=== PATIENT | male | born 1955 | race Hispanic/Latino ===

== ENCOUNTER 2025-05-10 21:46 | Emergency (ER) | payer SELFPAY, MEDICARE ==
[~2025-05-10] VITALS: Ht 157.5 cm; Wt 68.2 kg
[2025-05-11 00:39] LABS: KETONE, URINE AUTO RFX 1+ mg/dL (NEGATIVE); LEUKOCYTE ESTERASE UR AUTO RFX NEGATIVE (NEGATIVE); NITRITE, URINE AUTO RFX NEGATIVE (NEGATIVE); RBC, URINE AUTO RFX 0 /HPF (0-3); SQUAM EPITHELIAL CELL UR AURFX 0 /HPF (0-6); WBC, URINE AUTO RFX 1 /HPF (0-3)
[2025-05-11 01:22] LABS: Trichomonas vaginalis (AMP) NOT DETECTED (NEGATIVE)
[2025-05-11 01:46] LABS: GC DNA AMPLIFICATION NEGATIVE (NEGATIVE)
[2025-05-11 03:39] LABS: BASO # 0.0 10^3/uL (0.0-0.2); BASO % 0.3 % (0.0-1.0); EOS # 0.1 10^3/uL (0.0-0.5); EOS % 1.4 % (0.0-3.0); LYMPH # 3.0 10^3/uL (1.5-5.0); LYMPH % 31.0 % (24.0-44.0); MONO # 0.6 10^3/uL (0.0-0.8); MONO % 6.3 % (2.0-8.0); NEUTROPHILS # 5.8 10^3/uL (1.5-8.5); NEUTROPHILS % 60.7 % (36.0-66.0); PLATELET COUNT, AUTOMATED 194 10^3/uL (150-450)
[2025-05-11 03:56] LABS: CALCIUM LEVEL 8.5 MG/DL (8.3-10.6); CARBON DIOXIDE LEVEL 29 MMOL/L (20-31); CHLORIDE LEVEL 99 MMOL/L (98-107); CREATININE FOR GFR 0.78 MG/DL (0.70-1.30); GLOMERULAR FILTRATION RATE > 90.0 (>49); POTASSIUM SERUM 4.0 MMOL/L (3.5-5.1); SODIUM LEVEL 137 MMOL/L (136-145)
[2025-05-11 04:31] VITALS: BP 118/76; TEMP 98.6; O2SAT 98
== END 2025-05-11 05:06 | disposition home or self-care (01) ==
LOC: M ED 21:46
DX: K40.20 Bilateral inguinal hernia, without obstruction or gangrene, not specified as recurrent (principal); I10 Essential (primary) hypertension; E11.9 Type 2 diabetes mellitus without complications; J44.9 Chronic obstructive pulmonary disease, unspecified; Z88.8 Allergy status to other drugs, medicaments and biological substances; Z79.899 Other long term (current) drug therapy; Z79.4 Long term (current) use of insulin; Z79.01 Long term (current) use of anticoagulants; Z79.891 Long term (current) use of opiate analgesic

== ENCOUNTER 2025-05-12 20:50 | Inpatient (IN) | payer MEDICARE, OTHER, SELFPAY ==
[~2025-05-12] VITALS: Ht 157.5 cm; Wt 60.4 kg
[2025-05-12] MEDS: ONDANSETRON 4MG 2ML VIAL IV ONE (22:44)
[2025-05-12] MEDS: NS (Normal Saline) 0.9% 1,000 ML IV ONE (22:44)
[2025-05-12] MEDS: KETOROLAC 30 MG/ML 1 ML VIAL IV ONE (22:45)
[2025-05-12] MEDS ORDERED: ISOVUE-370 76% 100 ML VIAL As Ordered ONE (22:56)
[2025-05-12 22:57] LABS: BASO # 0.0 10^3/uL (0.0-0.2); BASO % 0.2 % (0.0-1.0); EOS # 0.0 10^3/uL (0.0-0.5); EOS % 0.3 % (0.0-3.0); LYMPH # 0.7 10^3/uL (1.5-5.0); LYMPH % 7.3 % (24.0-44.0); MONO # 0.4 10^3/uL (0.0-0.8); MONO % 3.6 % (2.0-8.0); NEUTROPHILS # 8.9 10^3/uL (1.5-8.5); NEUTROPHILS % 88.3 % (36.0-66.0); PLATELET COUNT, AUTOMATED 171 10^3/uL (150-450)
[2025-05-12 23:21] LABS: CK-MB VALUE MASS < 1.0 NG/ML (<3.6)
[2025-05-12 23:23] LABS: CPK CREATINE PHOSPHOKINASE 25 U/L (46-171)
[2025-05-12 23:39] LABS: ALT/SGPT 79 U/L (7.0-40); AST/SGOT 54 U/L (<34); CALCIUM LEVEL 8.1 MG/DL (8.3-10.6); CARBON DIOXIDE LEVEL 26 MMOL/L (20-31); CHLORIDE LEVEL 96 MMOL/L (98-107); CREATININE FOR GFR 0.75 MG/DL (0.70-1.30); GLOMERULAR FILTRATION RATE > 90.0 (>49); POTASSIUM SERUM 4.4 MMOL/L (3.5-5.1); SODIUM LEVEL 133 MMOL/L (136-145)
[2025-05-13] MEDS: [UNRECOGNIZED DRUG - OTHER] IV ONE (00:21)
[2025-05-13] MEDS: NS 0.9% IV ONE (00:21)
[2025-05-13] MEDS: HumuLIN R (REGULAR) INSULIN (NovoLIN R) **100 U/ML** PER UNIT IV ONE (00:27)
[2025-05-13 00:54] LABS: CK-MB VALUE MASS < 1.0 NG/ML (<3.6); CPK CREATINE PHOSPHOKINASE 22 U/L (46-171)
[2025-05-13] MEDS: MORPHINE 4 MG/ML 1 ML VIAL IV PRN ×2 (01:29→05:16)
[2025-05-13] MEDS ORDERED: GLUCAGON INJ 1 MG VIAL SC PRN (05:10)
[2025-05-13] MEDS ORDERED: GLUCOSE 4 GM CHEW PO PRN (05:10)
[2025-05-13] MEDS ORDERED: MORPHINE 2 MG/ML 1 ML VIAL IV PRN (05:10)
[2025-05-13] MEDS ORDERED: DEXTROSE 50% 50 ML SYRINGE IV PRN (05:10)
[2025-05-13] MEDS ORDERED: ONDANSETRON 4MG 2ML VIAL IV PRN (05:10)
[2025-05-13] MEDS: LR 1,000 ML IV SCH (05:39)
[2025-05-13] MEDS: ceFAZolin SOD 1 GM in DEXTROSE 5% (D5W) ADV/MINI-BAG 50 ML IV SCH (05:39)
[2025-05-13] MEDS ORDERED: B-650TAB2 PO (08:01)
[2025-05-13] MEDS ORDERED: RIFA150T PO (08:01)
[2025-05-13] MEDS ORDERED: ATOR1TAB19 PO (08:01)
[2025-05-13] MEDS ORDERED: METF500T13 PO (08:01)
[2025-05-13] MEDS ORDERED: ISON1TAB5 PO (08:01)
[2025-05-13] MEDS ORDERED: MOISCRE4 TOP (08:01)
[2025-05-13] MEDS ORDERED: LISI2.5T9 PO (08:01)
[2025-05-13] MEDS ORDERED: VENTAER INH (08:01)
[2025-05-13] MEDS ORDERED: HOME MED LIST COMPLETE! XX SCH (08:05)
[2025-05-13] MEDS: INSULIN LISPRO (NovoLOG) PER UNIT SC SCH (08:18)
[2025-05-13] MEDS: HEPARIN SOD 5000 UNITS/ML 1 ML VIAL/SYRINGE SC SCH (08:19)
[2025-05-13 09:06] LABS: KETONE, URINE AUTO RFX NEGATIVE (NEGATIVE); LEUKOCYTE ESTERASE UR AUTO RFX NEGATIVE (NEGATIVE); MUCUS, URINE RFX SMALL (NEGATIVE); NITRITE, URINE AUTO RFX NEGATIVE (NEGATIVE); RBC, URINE AUTO RFX 1 /HPF (0-3); SQUAM EPITHELIAL CELL UR AURFX 2 /HPF (0-6); WBC, URINE AUTO RFX 1 /HPF (0-3)
[2025-05-13] MEDS: PANTOPRAZOLE 40MG VIAL IV SCH (09:08)
[2025-05-13] MEDS ORDERED: ALBUTEROL 90 MCG/ACT 8 GM HFA INHALER INH PRN (11:55)
[2025-05-13 13:03] LABS: BASO # 0.0 10^3/uL (0.0-0.2); BASO % 0.3 % (0.0-1.0); EOS # 0.1 10^3/uL (0.0-0.5); EOS % 1.6 % (0.0-3.0); LYMPH # 1.4 10^3/uL (1.5-5.0); LYMPH % 22.7 % (24.0-44.0); MONO # 0.4 10^3/uL (0.0-0.8); MONO % 6.9 % (2.0-8.0); NEUTROPHILS # 4.1 10^3/uL (1.5-8.5); NEUTROPHILS % 68.2 % (36.0-66.0); PLATELET COUNT, AUTOMATED 144 10^3/uL (150-450)
[2025-05-13 13:31] LABS: CALCIUM LEVEL 7.3 MG/DL (8.3-10.6); CARBON DIOXIDE LEVEL 25 MMOL/L (20-31); CHLORIDE LEVEL 103 MMOL/L (98-107); CREATININE FOR GFR 0.57 MG/DL (0.70-1.30); GLOMERULAR FILTRATION RATE > 90.0 (>49); POTASSIUM SERUM 4.1 MMOL/L (3.5-5.1); SODIUM LEVEL 136 MMOL/L (136-145)
[2025-05-13 17:08] VITALS: BP 106/59; TEMP 97.9; O2SAT 95
[2025-05-13 19:44] VITALS: BP 130/60; TEMP 99.3; O2SAT 96
[2025-05-13] MEDS: ATORVASTATIN 10 MG TAB PO SCH (21:09)
[2025-05-13 23:53] VITALS: BP 125/60; TEMP 98.8; O2SAT 92
[2025-05-14 04:32] VITALS: BP 104/53; TEMP 98.8; O2SAT 97
[2025-05-14 07:49] LABS: BASO # 0.0 10^3/uL (0.0-0.2); BASO % 0.2 % (0.0-1.0); EOS # 0.2 10^3/uL (0.0-0.5); EOS % 2.0 % (0.0-3.0); LYMPH # 2.3 10^3/uL (1.5-5.0); LYMPH % 26.7 % (24.0-44.0); MONO # 0.6 10^3/uL (0.0-0.8); MONO % 7.5 % (2.0-8.0); NEUTROPHILS # 5.3 10^3/uL (1.5-8.5); NEUTROPHILS % 63.2 % (36.0-66.0); PLATELET COUNT, AUTOMATED 152 10^3/uL (150-450)
[2025-05-14 08:00] VITALS: BP 103/55; TEMP 98.1; O2SAT 95
[2025-05-14 08:16] LABS: CALCIUM LEVEL 7.7 MG/DL (8.3-10.6); CARBON DIOXIDE LEVEL 28 MMOL/L (20-31); CHLORIDE LEVEL 103 MMOL/L (98-107); CREATININE FOR GFR 0.66 MG/DL (0.70-1.30); GLOMERULAR FILTRATION RATE > 90.0 (>49); MAGNESIUM LEVEL 1.5 MG/DL (1.8-2.4); POTASSIUM SERUM 3.6 MMOL/L (3.5-5.1); SODIUM LEVEL 139 MMOL/L (136-145)
[2025-05-14] MEDS ORDERED: RIFAPENTINE XX SCH (09:00)
[2025-05-14 09:12] VITALS: BP 103/55
[2025-05-14] MEDS: LISINOPRIL 2.5 MG TAB PO SCH (09:12)
[2025-05-14] MEDS: PYRIDOXINE 50 MG TAB PO SCH (10:47)
[2025-05-14] MEDS: ISONIAZID 300 MG TAB PO SCH (10:47)
[2025-05-14] MEDS: MIRALAX *UNIT DOSE* 17 GM PACKET PO SCH (10:48)
[2025-05-14] MEDS: DOCUSATE SOD LIQ 100 MG/10 ML UDC PO ONE (10:51)
[2025-05-14] MEDS: RIFAPENTINE 150 MG PO SCH (11:24)
[2025-05-14 12:00] VITALS: BP 94/47; TEMP 98.1; O2SAT 95
[2025-05-14] MEDS: MAG SULF 1GM/100ML (MAG RUN) 1 GM in IV 1 EA IV SCH (12:19)
[2025-05-14] MEDS ORDERED: LANTINJ4 SC (14:46)
[2025-05-14] MEDS ORDERED: METF10004 PO (14:46)
[2025-05-14] MEDS ORDERED: FARX1TAB3 PO (14:46)
[2025-05-14 15:43] VITALS: BP 97/54
[2025-05-14 16:00] VITALS: BP 111/58; TEMP 98.4; O2SAT 95
[2025-05-14] MEDS: KETOROLAC 30 MG/ML 1 ML VIAL IV PRN (18:14)
== END 2025-05-14 18:34 | DRG 254 ==
LOC: M ED 20:50 → M ED INP 05-13 05:06 → M MSPAV 05-13 16:58
PROVIDERS: ADMIT Student in an Organized Health Care Education/Training Program; ATTEND Internal Medicine
DX: K40.20 Bilateral inguinal hernia, without obstruction or gangrene, not specified as recurrent (principal); K56.609 Unspecified intestinal obstruction, unspecified as to partial versus complete obstruction; J44.9 Chronic obstructive pulmonary disease, unspecified; E11.65 Type 2 diabetes mellitus with hyperglycemia; E83.42 Hypomagnesemia; I10 Essential (primary) hypertension; R33.9 Retention of urine, unspecified; E78.5 Hyperlipidemia, unspecified; R91.8 Other nonspecific abnormal finding of lung field; Z88.1 Allergy status to other antibiotic agents; Z87.891 Personal history of nicotine dependence

== ENCOUNTER 2025-05-18 08:58 | Emergency (ER) | payer OTHER ==
[~2025-05-18 08:58] MED LIST: ATOR1TAB19 PO; B-650TAB2 PO; FARX1TAB3 PO; ISON1TAB5 PO; LANTINJ4 SC; LISI2.5T9 PO; METF10004 PO; METF500T13 PO; MOISCRE4 TOP; RIFA150T PO; VENTAER INH
[2025-05-18 09:15] VITALS: BP 100/61; TEMP 97; O2SAT 98
== END 2025-05-18 11:32 | disposition left against medical advice (07) ==
LOC: M ED 08:58
DX: K40.20 Bilateral inguinal hernia, without obstruction or gangrene, not specified as recurrent (principal); Z53.9 Procedure and treatment not carried out, unspecified reason; E11.9 Type 2 diabetes mellitus without complications; I10 Essential (primary) hypertension; J44.9 Chronic obstructive pulmonary disease, unspecified; Z79.4 Long term (current) use of insulin; Z79.899 Other long term (current) drug therapy; Z88.1 Allergy status to other antibiotic agents

== ENCOUNTER 2025-05-20 21:18 | Emergency (ER) | payer OTHER ==
[~2025-05-20] VITALS: Ht 157.5 cm; Wt 68.2 kg
[2025-05-20 22:13] LABS: BASO # 0.0 10^3/uL (0.0-0.2); BASO % 0.5 % (0.0-1.0); EOS # 0.2 10^3/uL (0.0-0.5); EOS % 2.9 % (0.0-3.0); LYMPH # 2.4 10^3/uL (1.5-5.0); LYMPH % 39.7 % (24.0-44.0); MONO # 0.6 10^3/uL (0.0-0.8); MONO % 9.9 % (2.0-8.0); NEUTROPHILS # 2.9 10^3/uL (1.5-8.5); NEUTROPHILS % 46.7 % (36.0-66.0); PLATELET COUNT, AUTOMATED 193 10^3/uL (150-450)
[2025-05-20] MEDS ORDERED: ISOVUE-370 76% 100 ML VIAL As Ordered ONE (23:56)
[2025-05-21 00:01] LABS: ALT/SGPT 119 U/L (7.0-40); AST/SGOT 91 U/L (<34); CALCIUM LEVEL 8.0 MG/DL (8.3-10.6); CARBON DIOXIDE LEVEL 24 MMOL/L (20-31); CHLORIDE LEVEL 103 MMOL/L (98-107); CREATININE FOR GFR 0.76 MG/DL (0.70-1.30); GLOMERULAR FILTRATION RATE > 90.0 (>49); POTASSIUM SERUM 4.1 MMOL/L (3.5-5.1); SODIUM LEVEL 139 MMOL/L (136-145)
[2025-05-21] MEDS: traMADol 50 MG TAB PO ONE (01:09)
[2025-05-21 01:38] LABS: KETONE, URINE AUTO RFX NEGATIVE (NEGATIVE); LEUKOCYTE ESTERASE UR AUTO RFX NEGATIVE (NEGATIVE); MUCUS, URINE RFX SMALL (NEGATIVE); NITRITE, URINE AUTO RFX NEGATIVE (NEGATIVE); RBC, URINE AUTO RFX 0 /HPF (0-3); SQUAM EPITHELIAL CELL UR AURFX 0 /HPF (0-6); WBC, URINE AUTO RFX 2 /HPF (0-3)
[2025-05-21 02:16] VITALS: BP 114/61; TEMP 97.8; O2SAT 95
== END 2025-05-21 02:26 | disposition home or self-care (01) ==
LOC: M ED 21:18
DX: K40.20 Bilateral inguinal hernia, without obstruction or gangrene, not specified as recurrent (principal); E11.9 Type 2 diabetes mellitus without complications; I10 Essential (primary) hypertension; E78.5 Hyperlipidemia, unspecified; Z79.899 Other long term (current) drug therapy; Z88.1 Allergy status to other antibiotic agents
CPT/HCPCS: 74177; 76870; 80053; 81001; 83605; 85025; 93976; 99284; Q9967